=== PATIENT | male | born 1945 | race Caucasian/White ===

== ENCOUNTER → 2019-03-30 11:02 | Outpatient (POV) | payer MEDICARE, SELFPAY ==
[2019-03-30 11:07] VITALS: BP 184/88; PULSE 87; RESP 18; O2SAT 99; BMI 33.5
--- NOTE | 2019-03-30 12:24 | XR_ITS ---
PROCEDURE: XR MULTIPLE SPINE 6+V CLINICAL INDICATION: BACK PAIN Mid and low back pain COMPARISON: No exams were available for comparison FINDINGS: Thoracic spine: Multilevel degenerative disc disease is present with anterior bridging osteophytes in the mid lower thoracic spine. There is an epidural stimulator device present at T9-T10. There is slight decrease in height anteriorly at T4-T5-T6-T7 T9 and T10 age indeterminate. No lytic or blastic change. Lumbar spine: Degenerative disc disease from T12-S1. Normal alignment with no fracture or dislocation. Endplate osteophytes are present at every level most prominent at L5-S1. There is osteosclerosis of the endplates at L5-S1 and there are facet arthritic changes at L4-5 and L5-S1. No obvious acute fracture or dislocation. There is a mild amount of retained colonic feces IMPRESSION: Thoracic spondylosis with kyphosis. Mild multilevel wedging of the vertebral bodies which may be chronic. Follow-up may confirm Lumbar spondylosis as detailed above Dictated by: Kanu Gallagher MD 03/30/2019 14:23 Electronically signed by Kanu Gallagher MD in [place] 03/30/2019 14:23
--- NOTE | 2019-03-30 13:08 | HMH.PMCON ---
Assessment and Plan (1) Degenerative joint disease (DJD) of lumbar spine Current visit: Yes Status: Chronic Category: Medical Code(s): M47.816 - Spondylosis without myelopathy or radiculopathy, lumbar region (2) Lumbar radiculopathy Current visit: Yes Status: Chronic Category: Medical Code(s): M54.16 - Radiculopathy, lumbar region (3) Spinal stenosis Current visit: Yes Status: Chronic Category: Medical Code(s): M48.00 - Spinal stenosis, site unspecified - Assessment and plan all Dx Assessment and Plan for all problems:: The patient's generator is at end-of-life. Unfortunately, the patient was very tearful today and upset because he has felt as though he has not gotten any help with both the [employer] company, as well as with other providers. Patient says that the only time he ever felt as though anyone were listening to him was when he spoke with Dr. Choudhury. patient feels that he has simply been encouraged to take oral opiates. Patient is not interested in oral medication management. He was very happy with his spinal cord stimulator and it was initially placed by Dr. Choudhury. I think the patient would benefit from a generator change, as well as lead replacement. We will set the patient for thoracic and lumbar spine x-rays today. We will plan to replace his system with an [employer] stimulator system. He is not on any anticoagulation therapy. He is attempting a home stretching program. He has tried conservative therapies of injections, anti-inflammatories, oral medications, ice and heat therapies, and a TENS unit. He is also continuing with anti-inflammatories. We will see the patient back after the replacement of his stimulator system to reassess his symptoms. Patient's been instructed to contact the clinic if he has any concerns before his next appointment. Dr. Choudhury has reviewed this note and agrees with this plan of care. This note was dictated using voice recognition software and make contain errors or omissions. HPI - Data of Consult Consult date: 03/30/19 Requesting Physician: Isaura Wyatt APRN Primary Care Provider: Salud Giang MD - Consult Narrative Reason for consult: End-of-life of generator History of present illness: Mr. Hemphill is a 73 year old male who presents today for consultation for end-of-life of generator of his spinal cord stimulator. Patient was previously seen by Dr. Choudhury in 2015 and says that he had a Medtronic spinal cord stimulator placed for low back pain with radiculopathy symptoms into his bilateral lower extremities. Patient says he is currently having extreme low back pain with radiation into his right hip and right leg. He says he is developing numbness and tingling. He does say over the last year he has been unable to travel or stand for more than 10 minutes without developing severe pain. He says walking and standing does increase his pain. He rates his pain an 8 out of 10 today. Patient says he has followed up with multiple pain management centers to have tried to give him oral opiates rather than help him with generator change. Patient says his Medtronic stimulator worked well for his pain when it was initially placed by Dr. Choudhury, but began to weaken in relief . Patient was meeting with the [employer] accounts receivable representative at Dr. Robert Núñez's office regularly for reprogramming. Patient says that he arrived to the office one day to discuss possible reprogramming and was informed by a lady [employer] accounts receivable representative that he would no longer be able to follow-up in Dr. Choudhury's office because [employer] no longer goes to Dr. Choudhury's offices . Patient says he did what he was told, and began seeing a new provider at [facility]. He says he saw Dr. josé miguel Jimenez who did send him to physical therapy. Patient says he continues to do water aerobics 5 days a week as he was instructed. He says it has not helped him with his right low back pain in his right side and right hip pain. He
--- NOTE | 2019-03-30 13:17 | P.CONS_ITS ---
Assessment and Plan (1) Degenerative joint disease (DJD) of lumbar spine Current visit: Yes Status: Chronic Category: Medical Code(s): M47.816 - Spondylosis without myelopathy or radiculopathy, lumbar region (2) Lumbar radiculopathy Current visit: Yes Status: Chronic Category: Medical Code(s): M54.16 - Radiculopathy, lumbar region (3) Spinal stenosis Current visit: Yes Status: Chronic Category: Medical Code(s): M48.00 - Spinal stenosis, site unspecified - Assessment and plan all Dx Assessment and Plan for all problems:: The patient's generator is at end-of-life. Unfortunately, the patient was very tearful today and upset because he has felt as though he has not gotten any help with both the [employer] company, as well as with other providers. Patient says that the only time he ever felt as though anyone were listening to him was when he spoke with Dr. Choudhury. patient feels that he has simply been encouraged to take oral opiates. Patient is not interested in oral medication management. He was very happy with his spinal cord stimulator and it was initially placed by Dr. Choudhury. I think the patient would benefit from a generator change, as well as lead replacement. We will set the patient for thoracic and lumbar spine x-rays today. We will plan to replace his system with an [employer] stimulator system. He is not on any anticoagulation therapy. He is attempting a home stretching program. He has tried conservative therapies of injections, anti- inflammatories, oral medications, ice and heat therapies, and a TENS unit. He is also continuing with anti-inflammatories. We will see the patient back after the replacement of his stimulator system to reassess his symptoms. Patient's been instructed to contact the clinic if he has any concerns before his next appointment. Dr. Choudhury has reviewed this note and agrees with this plan of care. This note was dictated using voice recognition software and make contain errors or omissions. HPI - Data of Consult Consult date: 03/30/19 Requesting Physician: Isaura Wyatt APRN Primary Care Provider: Salud Giang MD - Consult Narrative Reason for consult: End-of-life of generator History of present illness: Mr. Hemphill is a 73 year old male who presents today for consultation for end-of-life of generator of his spinal cord stimulator. Patient was previously seen by Dr. Choudhury in 2015 and says that he had a Medtronic spinal cord stimulator placed for low back pain with radiculopathy symptoms into his bilateral lower extremities. Patient says he is currently having extreme low back pain with radiation into his right hip and right leg. He says he is developing numbness and tingling. He does say over the last year he has been unable to travel or stand for more than 10 minutes without developing severe pain. He says walking and standing does increase his pain. He rates his pain an 8 out of 10 today. Patient says he has followed up with multiple pain management centers to have tried to give him oral opiates rather than help him with generator change. Patient says his Medtronic stimulator worked well for his pain when it was initially placed by Dr. Choudhury, but began to weaken in relief . Patient was meeting with the [employer] human resources representative at Dr. Robert Núñez's office regularly for reprogramming. Patient says that he arrived to the office one day to discuss possible reprogramming and was informed by a lady [employer] human resources representative that he would no longer be able to follow-up in Dr. Choudhury's office because [employer] no longer goes to Dr. Choudhury's offices . Patient says he did what he was told, and began seeing a new provider at [facility]. He
== END ==
PROVIDERS: PCP Family Medicine; Visit Provider Clinical Nurse Specialist Family Health
DX: M47.816 Spondylosis without myelopathy or radiculopathy, lumbar region (principal); M54.16 Radiculopathy, lumbar region; M48.00 Spinal stenosis, site unspecified
CPT/HCPCS: 72084; 99202

== ENCOUNTER → 2019-04-18 11:33 | Outpatient (POV) | payer MEDICARE, SELFPAY ==
[2019-04-18 11:46] VITALS: BP 159/70; PULSE 76; RESP 18; O2SAT 99; BMI 33.5
--- NOTE | 2019-04-18 16:21 | HMH.PAINSOAP ---
[facility] Pain Management SOAP Note Subjective:: Patient is a 73-year-old white male who presents today frustrated in his pain management during. Patient started out with Dr. Pratibha Brush almost 20 years ago where he had a trial for neurostimulator. It was successful and he was then implanted by Dr. Choudhury in [place] in 2004 with percutaneous leads. Patient had good success with this for many years and did well with it. Patient was seen one time in our [place] clinic and I have pulled notes in regards to this to confirm. Patient was also seen by Dr. Marks more at the time. Patient then was told that Dr. Choudhury is no longer utilizing the Medtronic system and sent to [facility] in [place]. Patient was seen by Dr. Weller and was told that he was not a surgical candidate. He was then seen by Dr. Sung and implanted with a paddle lead for his neurostimulator. Patient stated that it was extremely painful and that he had 2 days in the hospital where he had uncontrolled pain. Patient had difficulty getting stimulation with the Medtronic systems status post this. Patient was then transferred to Dr. Perdomo's office. At Dr. velazquez office he spent 4 hours with the [employer] leasing representative and stated that he did get coverage on both sides in regards to his current neurostimulator paddle lead placement. He states that this lasted for 1 year. Patient was not getting the same coverage and felt that at this time there is nothing else that could be done at Dr. acevedo office. He transferred care to the [facility] pain management office. Patient was given Percocet at this office. Patient states that taking Percocet is like taking M&Ms. He states the only thing that works for him is Oxy . I discussed with him that we would not be prescribing any narcotic medications for him at any time. Patient states he understands this. Patient wants to try a new generator for his neurostimulator I do believe that it may benefit him to have a new generator. This 1 is currently . Patient and I also discussed potentially needing epidural injections we also discussed other options at this time I do believe switching out his battery to see if we can get some benefit from his leads would be productive. I discussed with the patient that we will need discharge letters from his previous pain management clinic. Patient understands this. He rates his pain today a 7 out of 10 mostly in his back and down his right leg. Patient does have a recent x-ray showing midline paddle lead placement. Patient is not on any anticoagulation therapy. ROS General: no recent weight change, no fever, no sleep disturbances Respiratory: no cough, no shortness of air, no recurring pulmonary infections Cardiovascular/Peripheral Vascular: No chest pain, No palpitations, no edema, no shortness of breath. Gastrointestinal: no new onset incontinence, normal bowel movements reported Genitourinary: no new onset incontinence Musculoskeletal: Back pain, leg pain Psychiatric: normal mood/ affect Neurological: [denies new onset weakness in extremities], [denies new onset balance issues] Objective:: Physical Exam General: Alert and oriented x3, no acute distress, pleasant and cooperative, [on room air] Lungs: Resps E/U, Symmetrical chest expansion, Eyes: PERRL Musculoskeletal: Flexion and extension of lumbar spine somewhat guarded secondary to pain, deep tendon reflexes normal, strength in upper and lower extremities [5/5], [abnormal gait noted] Neurological: speech clear, water supply technician equal, no gross sensory deficits Assessment:: Degenerative disc disease lumbar spine with lumbar radiculopathy spinal stenosis Plan:: I reiterated with the patient that we will never be prescribing him oral narcotic medications. We will move forward with replacing his battery with a [employer] and he would like to move forward with this. I did have the [employer] leasing representative glenn
--- NOTE | 2019-04-18 16:26 | P.CONS_ITS ---
[facility] Pain Management SOAP Note Subjective:: Patient is a 73-year-old white male who presents today frustrated in his pain management during. Patient started out with Dr. Pratibha Brush almost 20 years ago where he had a trial for neurostimulator. It was successful and he was then implanted by Dr. Choudhury in [place] in 2004 with percutaneous leads. Patient had good success with this for many years and did well with it. Patient was seen one time in our [place] clinic and I have pulled notes in regards to this to confirm. Patient was also seen by Dr. Marks more at the time. Patient then was told that Dr. Choudhury is no longer utilizing the Medtronic system and sent to [facility] in [place]. Patient was seen by Dr. Weller and was told that he was not a surgical candidate. He was then seen by Dr. Sung and implanted with a paddle lead for his neurostimulator. Patient stated that it was extremely painful and that he had 2 days in the hospital where he had uncontrolled pain. Patient had difficulty getting stimulation with the [employer] systems status post this. Patient was then transferred to Dr. Perdomo's office. At Dr. velazquez office he spent 4 hours with the [employer] community representative and stated that he did get coverage on both sides in regards to his current neurostimulator paddle lead placement. He states that this lasted for 1 year. Patient was not getting the same coverage and felt that at this time there is nothing else that could be done at Dr. acevedo office. He transferred care to the psychiatric pain management office. Patient was given Percocet at this office. Patient states that taking Percocet is like taking M&Ms. He states the only thing that works for him is Oxy . I discussed with him that we would not be prescribing any narcotic medications for him at any time. Patient states he understands this. Patient wants to try a new generator for his neurostimulator I do believe that it may benefit him to have a new generator. This 1 is currently . Patient and I also discussed potentially needing epidural injections we also discussed other options at this time I do believe switching out his battery to see if we can get some benefit from his leads would be productive. I discussed with the patient that we will need discharge letters from his previous pain management clinic. Patient understands this. He rates his pain today a 7 out of 10 mostly in his back and down his right leg. Patient does have a recent x-ray showing midline paddle lead placement. Patient is not on any anticoagulation therapy. ROS General: no recent weight change, no fever, no sleep disturbances Respiratory: no cough, no shortness of air, no recurring pulmonary infections Cardiovascular/Peripheral Vascular: No chest pain, No palpitations, no edema, no shortness of breath. Gastrointestinal: no new onset incontinence, normal bowel movements reported Genitourinary: no new onset incontinence Musculoskeletal: Back pain, leg pain Psychiatric: normal mood/ affect Neurological: [denies new onset weakness in extremities], [denies new onset balance issues] Objective:: Physical Exam General: Alert and oriented x3, no acute distress, pleasant and cooperative, [on room air] Lungs: Resps E/U, Symmetrical chest expansion, Eyes: PERRL Musculoskeletal: Flexion and extension of lumbar spine somewhat guarded secondary to pain, deep tendon reflexes normal, strength in upper and lower extremities [5/5], [abnormal gait noted] Neurological: speech clear, computer hardware engineer equal, no gross sensory deficits Assessment:: Degenerative disc disease lumbar spine with lumbar radiculopathy spinal stenos
== END ==
PROVIDERS: PCP Family Medicine; Visit Provider Clinical Nurse Specialist Family Health
DX: M48.061 Spinal stenosis, lumbar region without neurogenic claudication (principal); M51.36 Other intervertebral disc degeneration, lumbar region
CPT/HCPCS: 99212